=== PATIENT | male | born 1975 | race Caucasian/White ===

== ENCOUNTER 2019-11-27 17:57 | Observation (INO) ==
[2019-11-27 18:30] LABS: Basophils # 0.1 10*3/uL (0.0-0.2); Basophils % 0.8 % (0.0-0.8); Eosinophils # 0.1 10*3/uL (0.0-0.87); Eosinophils % 0.7 % (0.00-10.9); Hematocrit 44.6 VOL% (42.0-52.0); Immature Granulocytes % 0.3 %; Immature Granulocytes Absolute 0.02 #; Lymphocytes # 1.6 10*3/uL (1.4-4.0); Lymphocytes % 21.4 % (21.2-54.2); Mean Corpuscular HGB Conc 35.9 GM/DL (32-36); Mean Corpuscular Volume 88.7 FL (87-102); Mean Platelet Volume 9.7 FL (9.6-12.0); Monocytes % 8.4 % (1.7-12.7); Neutrophils % 68.4 % (38.7-73.9); Platelet Count 188 T/CUMM (130-400); Red Blood Count 5.03 MC/CUMM (3.8-5.5); Red Cell Distribution Width 12.2 % (9.3-17.3); White Blood Count 7.5 T/CUMM (4-12)
[2019-11-27] MEDS ORDERED: NITROGLYCERIN 2% OINT 1 INCH/GM PACK TOP STA (18:30)
[2019-11-27] MEDS ORDERED: ALUM/MAG/SIMETH/LIDO VISC 1:1 30 ML BOTTLE PO STA (18:30)
[2019-11-27] MEDS ORDERED: MORPHINE 4 MG/1 ML VIAL IV STA (18:30)
[2019-11-27] MEDS ORDERED: ONDANSETRON 4 MG/2 ML VIAL IV STA (18:30)
[2019-11-27 18:43] LABS: PT Patient Result 11.2 SECS (9.8-11.9); Partial Thromboplastin Time 33.6 SECS (23.9-33.8)
[2019-11-27 18:49] LABS: Albumin 4.1 G/DL (3.4-5.0); Bilirubin,Total 1.1 MG/DL (0.2-1.0); Calcium 9.4 MG/DL (8.5-10.1); Osmolality,Calculated 278.4 MOS/KG (273-304); Total Protein 7.2 G/DL (6.4-8.3)
[2019-11-27] MEDS ORDERED: DOCUSATE SODIUM 100 MG CAPSULE PO PRN (19:13)
[2019-11-27] MEDS ORDERED: ALUMINUM/MAGNES/SIMETH MAX STR 30 ML UDCUP PO PRN (19:13)
[2019-11-27] MEDS ORDERED: ZALEPLON 5 MG CAPSULE PO PRN (19:13)
[2019-11-27] MEDS ORDERED: MORPHINE 4 MG/1 ML VIAL IV PRN (19:13)
[2019-11-27] MEDS ORDERED: ONDANSETRON 4 MG/2 ML VIAL IV PRN (19:13)
[2019-11-27] MEDS ORDERED: DEXTROSE 50% 25 GM/50 ML VIAL IV PRN ×2 (19:13→19:22)
[2019-11-27] MEDS ORDERED: ACETAMINOPHEN 325 MG TABLET PO PRN (19:13)
[2019-11-27] MEDS ORDERED: GLUCAGON 1 MG VIAL IM PRN ×2 (19:13→19:22)
[2019-11-27] MEDS ORDERED: CALCIUM CARBONATE CHEW 500 MG TABLET PO PRN (19:13)
[2019-11-27] MEDS ORDERED: traZODone 50 MG TABLET PO PRN (19:27)
[2019-11-27] MEDS ORDERED: NITROGLYCERIN SL 0.4 MG TABLET SL PRN (20:15)
[2019-11-28 01:02] LABS: Risk Ratio 5.48; Thyroid Stimulating Hormone 6.31 uIU/ml (0.358-3.74); VLDL CHOLESTEROL 33.6 MG/DL
[2019-11-28] MEDS ORDERED: ASPIRIN EC 325 MG TABLET PO SCH (09:00)
[2019-11-28] MEDS ORDERED: PANTOPRAZOLE 40 MG TABLET PO SCH (09:00)
[2019-11-28 11:26] VITALS: BP 112/63
== END 2019-11-28 14:05 | disposition home or self-care (01) ==
LOC: EDBD → EDUNIT# → N.EDINP 17:57 → N.ED 17:57 → SUATTDRO 19:12 → N.TELES 20:11
PROVIDERS: ADMIT Hospitalist; ATTEND Internal Medicine